=== PATIENT | male | born 2000 | race African-American/Black ===

== ENCOUNTER → 2022-04-23 08:29 | Outpatient (BNVA) | payer OTHER, SELFPAY | PROVIDERS: Visit Provider Internal Medicine | DX: M75.41 Impingement syndrome of right shoulder (principal) | CPT/HCPCS: 73030; 99203 ==

== ENCOUNTER → 2022-04-26 08:38 | Outpatient (BNVA) | payer OTHER, SELFPAY | PROVIDERS: Visit Provider Physician Assistant Medical | DX: M75.41 Impingement syndrome of right shoulder (principal) | CPT/HCPCS: 99213 ==

== ENCOUNTER → 2022-05-03 09:36 | Outpatient (BNVA) | payer OTHER, SELFPAY | PROVIDERS: Visit Provider Physician Assistant Medical | DX: M75.41 Impingement syndrome of right shoulder (principal) | CPT/HCPCS: 99213 ==

== ENCOUNTER → 2022-05-24 08:01 | Outpatient (BNVA) | payer OTHER, SELFPAY | PROVIDERS: Visit Provider Physician Assistant Medical | DX: M75.41 Impingement syndrome of right shoulder (principal) | CPT/HCPCS: 99213 ==

== ENCOUNTER → 2022-06-15 15:30 | Outpatient (BNVA) | payer OTHER, SELFPAY | PROVIDERS: Visit Provider Internal Medicine | DX: M25.811 Other specified joint disorders, right shoulder (principal) | CPT/HCPCS: 99213 ==

== ENCOUNTER 2022-06-17 17:00 | Outpatient (RCR) | payer OTHER, SELFPAY ==
--- NOTE | 2022-05-10 10:12 | MHC.PT.EP ---
[facility] [place] Office [place] Office [place] Office [address] Wil Esposiot [address] [phone] F: [phone] F: [phone] F: [phone] F: [phone] Physical Therapy Plan of Care Date of Evaluation: Date of Surgery: Diagnosis: Rt ROTATOR CUFF IMPINGEMENT Assessment: 22 MALE REF TO PT W DX OF Rt SH IMPINGEMENT, SUSTAINED ON 04/21/22 WHILE Pt WAS ACTIVE IN THE [employer]. 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 Pt IS Rt HAND DOMINANT. HE HAS (+) IMPINGEMENT SIGNS, DECR STRENGTH IN POST RC/ SCAP STAB, Rt SH END ROM SORENESS AND POST ACTIVITY PAIN, (+) PECT/ ANT CHAIN TISSUE RESTRICTION, (+) PELVIC ASYMM AND C-CURVE LEFT TENDENCIES. FUNCTIONALLY, Pt IS SYMPTOMATIC AFTER Rt UE USAGE, REACHING, LIFTING, IR POSTERIORLY. Pt IS A GOOD CANDIDATE TO ADDRESS THE ABOVE FINDINGS-> PAIN/SX MGMT STRATEGIES, DEV A PROGR THER EXER FOR Rt SH COMPLEX AND LUMBOPELVIC STAB, AND GUIDE Pt TO MEET ULTIMATE GOAL OF RE-ENTRY IN THE [employer]. Frequency and Duration: The patient will be seen 2 x WK x 4 WKS Short Term Goals: *Pt INDEP POSTURAL CORRECTION AND WFL BODY MECH AWARENESS, WFL PELVIC SYMM/ REDUCE Rt LATERAL CHAIN TISSUE TENSION *Pt'S Rt SH PAIN DCER TO 2-3/10 @ MAX *Pt REGAIN WFL AROM Rt SH W/O IMPINGEMENT SIGN * INITIATE HEP FOR POST RC/ SCAP STRENGTH AND STAB WELL ANT CHAIN MOBILITY Penitentiary Goals: *Pt INDEP W PROGR HEP ADDRESSING SOFT TISSUE TENSION WELL POST RC/ SCAP STRENGTH IN 4 WKS *Pt RESUME REG ADLs EVIDENT W Pt'S SPADI SCORE IMPROVEMENT BY 5-8 POINTS (AT EVAL 27/130) IN 4 WKS *Pt INDEP SELF-SX MGMT Treatment Plan: Modalities to reduce pain, spasms and effusion. Manual therapy to restore motion and function. Therapeutic exercise to improve strength and flexibility. Neuromuscular re-education for posture and balance. Therapeutic activities to return to functional activities of daily living. Electronically signed by: Kimberly Mcpherson PT Please sign and return to therapist. Thank you for your referral.
--- NOTE | 2022-06-17 17:54 | MHC.PT.DC ---
[facility] [place] Office [place] Office [place] Office [address] Wil Esposito [address] [phone] F: [phone] F: [phone] F: [phone] F: [phone] Physical Therapy Discharge Report Diagnosis: Rt ROTATOR CUFF IMPINGEMENT Date of Surgery: Date of Evaluation: 05/10/22 Date of Discharge: 06/17/22 Treatments to Date: 8 Cancellations to Date: 2 No Shows to Date: 1 Discharge Status: Independent with HEP Recommend MD Follow-up Discharge Summary: 06/17/2022: Pt has made some progress since beginning skilled PT although he is still having discomfort at times which is preventing him from returning to his full PLOF. He feels his pain overall is better but still there. He has recently been referred to ortho although does not have the appointment scheduled yet. At this point he has appeared to reach a plateau with skilled PT and therefore it is not appropriate to continue at this time. Max benefits of skilled PT have been provided to this point. Discussed recent plateau and plan for d/c with the pt today and he is in agreement. Recommend he attends his appointment with ortho for further management of pain/sx. 06/14/2022: Max cues for speed of movement with exercises as he has increased pain when he moves too fast through strengthening likely due to momentum taking over rather than focusing on controlling and isolating his muscles. Still with extreme difficulty executing this as he resorts back to fast movement frequently. Pain with planks so held on this today. Pt pain appears to be increasing without any new mechanism over these last few visits. He is seeing work connection this week and advised discussing this recent worsening of pain. Also discussed plan to d/c next session due to not making new progress recently and pt with good agreement. 06/10/2022: Still with discomfort that appeared at the start of last session. Still needing cues during session for form with fair carry over. Initially discomfort with serratus press but after correcting form no pain. Advised continuing to work on HEP at home and being mindful of form. 06/07/2022: Pt with some increase in discomfort today with Y exercise at the end and also with serratus punch. Still requiring cues for slow speed of movement and proper form throughout to maximize benefits of each exercise. Fair improvement after these cues. Modified session to accommodate with less UE weight bearing. Instead added AAROM for flexion and a cane press both of which were tolerated. Advised continuation of HEP at home as tolerated and without pushing into pain. 06/03/2022: Pt requesting to leave after 40 minutes today stating he felt off . Pt accommodated and shorter session today. Otherwise tolerated exercises well without pain. Progressed some scapular stability exercises without adverse reaction. Cues for form intermittently with some improvement. Advised continuing with HEP at home. 05/24/2022: Initiated modified weight bearing positions on the wall. No pain with these but muscle fatigue notable affecting form at times. Cues to correct this. Initiated planks for other closed change strengthening and pt with quite a bit of difficulty with form and visibly challenge with strength impairments. Advised adding modified closed change exercises to home as tolerated and good verbal understanding. 05/17/2022: Progressed shoulder and scapular stability program today. Pt with no pain but does fatigue requiring rest breaks throughout. Cues for form intermittently especially for proper scap recruitment. Updated HEP and printout provided. Advised pt to continue with HEP at home. 22 MALE REF TO PT W DX OF Rt SH IMPINGEMENT, SUSTAINED ON 04/21/22 WHILE Pt WAS ACTIVE IN THE [employer]. 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 Pt IS Rt HAND DOMINANT. HE HAS (+) IMPINGEMENT SIGNS, DECR STRENGTH IN POST RC/ SCAP STAB, Rt SH END ROM SORENESS AND POST ACTIVITY PAIN, (+) PECT/ ANT CHAIN TISSUE RESTRICTION, (+) PELVIC ASYMM AND C-CURVE LEFT TENDENCIES. FUNCTIONALLY, Pt IS SYMPTOMATIC AFTER Rt UE USAGE, REACHING, LIFTING, IR POSTERIORLY. Pt IS A GOOD CANDIDATE TO ADDRESS THE ABOVE FINDINGS-> PAIN/SX MGMT STRATEGIES, DEV A PROGR THER EXER FOR Rt SH COMPLEX AND LUMBOPELVIC STAB, AND GUIDE Pt TO MEET ULTIMATE GOAL OF RE-ENTRY IN THE [employer]. Electronically signed by: Maryellen Carlson, PT, DPT, ATC Please sign and return to therapist. Thank you for your referral.
== END 2022-06-17 17:54 | disposition home or self-care (01) ==
LOC: HO.PTCHIC 17:00
PROVIDERS: Visit Provider Physician Assistant Medical
DX: M25.811 Other specified joint disorders, right shoulder (principal)
CPT/HCPCS: 97110; 97140; 97161; 97530

== ENCOUNTER 2022-09-05 23:20 | Emergency (ER) | payer BC, SELFPAY ==
[2022-09-05 23:46] VITALS: BP 138/91; PULSE 105; RESP 18; TEMP 36.9; O2SAT 97; BMI 25.2
--- NOTE | 2022-09-05 23:49 | ECG_ITS ---
Test Reason : chest pain Blood Pressure : / mmHG Vent. Rate : 097 BPM Atrial Rate : 097 BPM P-R Int : 160 ms QRS Dur : 080 ms QT Int : 342 ms P-R-T Axes : 075 071 069 degrees QTc Int : 434 ms Normal sinus rhythm with sinus arrhythmia Normal ECG No previous ECGs available Referred By: Generic ED Physician Electronically Signed By:EVERETT CARR
--- NOTE | 2022-09-06 00:11 | ED_ITS ---
HPI - Chest Pain General Chief Complaint: Chest Pain Stated Complaint: pain from r shoulder down, feels numb, chest pain Time Seen by Provider: 09/06/22 00:11 Source: patient Mode of arrival: ambulatory Limitations: no limitations History of Present Illness HPI narrative: Previous steroid her cuff impingement syndrome right-sided otherwise healthy very active comes here for sudden onset of right arm pain feel like ache started with numbness when patient came in her mid chest in also no diaphoresis no nausea no vomiting no shortness no pain with with right arm movement Related Data Allergies Allergy/AdvReac Type Severity Reaction Status Date / Time No Known Allergies Allergy Verified 09/05/22 23:43 Review of Systems Review of Systems: Yes all other systems are reviewed and are negative [facility] Social History Social History Alcohol intake: current Alcohol intake frequency: a few times a week Alcohol type: other Smoked in Last 30 Days: No Use of substances other than those prescribed or required for medical reasons: No Advance Directives: No Advance Directives Information Provided: No Physical Exam Vital Signs: Vital Signs: Last Vital Signs Temp 98.6 F 09/06/22 00:33 Pulse 85 09/06/22 00:33 Resp 18 09/06/22 00:33 BP 130/85 09/06/22 00:33 Pulse Ox 97 09/06/22 00:33 O2 Del Method 09/06/22 00:33 BMI result Body Mass Index 25.2 Appearance: Alert. Oriented X3. No acute distress. No pallor or icterus ENT: Pharynx normal. Oral Mucosa moist Neck: Normal inspection. Neck supple. CVS: Normal heart rate and rhythm. Pulses normal. Respiratory: No respiratory distress. Equal air entry bilateral, no wheezing/rales/rhonchi Abdomen: Soft and nontender. Bowel sounds are present, no mass palpable, no CVA tenderness Skin: Skin warm and dry. Normal skin color. Normal skin turgor. Extremities: No lower extremity edema. No calf tenderness Neuro: Oriented X 3. No motor deficit. Medical Decision Making Medical Decision Making MDM Narrative: Patient clinically musculoskeletal arm pain labs are negative discharge patient home heart score of 0 Lab Attestation: I reviewed the patient's lab results. Independent interpretation of EKG, rhythm strip, radiology study: Independent interp EKG,rhythm strip, radiology study I performed an independent interpre tation of the: EKG My interpretation is normal sinus rhythm heart rate 97 beats per minute normal interval normal axis no acute ST-T changes no acute ischemia impression normal EKG Discharge Plan Discharge Clinical Impression: Musculoskeletal chest pain Patient Disposition: Home, Self-Care Instructions: Noncardiac Chest Pain (ED) Additional Instructions: Tylenol/Motrin for pain as needed Follow with PCP if any concerns
[2022-09-06 00:24] LABS: Basophils Percent Auto 0.5 % (0-2); Eosinophils Absolute Auto 0.1 X10*3/uL (0.0-0.4); Eosinophils Percent Auto 0.8 % (0-4); Hematocrit 44.4 % (42.0-52.0); Hemoglobin 15.1 g/dl (14.0-18.0); Imm Gran Abs Auto 0.02 X10*3/uL (0.00-0.03); Imm Gran Pct Auto 0.3 % (0.0-0.4); Lymphocytes Absolute Auto 1.7 X10*3/uL (1.2-4.9); Lymphocytes Percent Auto 23.3 % (20-40); Mean Corpuscular Hemoglobin 29.2 pg (27.0-33.0); Mean Corpuscular Volume 85.9 fL (80.0-98.0); Mean Platelet Volume 8.6 fL (9.4-12.4); Monocytes Absolute Auto 0.7 X10*3/uL (0.1-1.2); Monocytes Percent Auto 9.1 % (2-11); Neutrophils Absolute Auto 4.9 x10*3/uL (2.0-8.3); Platelet Count 293 X10*3/uL (160-400); Red Blood Count 5.17 X10*6/uL (4.60-5.80); Red Cell Distribution Width 11.9 % (11.0-16.0); White Blood Count 7.4 X10*3/uL (4.8-10.8)
[2022-09-06 00:28] LABS: MANUAL DIFF FLAG NO
[2022-09-06 00:32] VITALS: PULSE 89
[2022-09-06 00:33] VITALS: BP 130/85; PULSE 85; RESP 18; TEMP 37; O2SAT 97
[2022-09-06 00:49] LABS: COVID-19 Test Negative (Negative); IDNOW Serial# BCCEAD1C
[2022-09-06 00:55] LABS: Troponin-I High Sensitivity < 3.5 ng/L (<3.5-35.0)
[2022-09-06 01:00] LABS: Anion Gap 15 (12-20); Blood Urea Nitrogen 12 mg/dL (9-16); Calcium 9.9 mg/dL (8.4-10.2); Carbon Dioxide 25 mmol/L (22-29); Chloride 104 mmol/L (96-108); Creatinine Clr Calc Pharmacy 102.8; Estimated Glomerular Filt Rate > 60; Glucose Random 96 mg/dL (60-115); Potassium 4.1 mmol/L (3.3-5.1); Sodium 140 mmol/L (135-145)
== END 2022-09-06 01:43 | disposition home or self-care (01) ==
PROVIDERS: Emergency Provider Internal Medicine
DX: R07.89 Other chest pain (principal); M75.41 Impingement syndrome of right shoulder
CPT/HCPCS: 36415; 80048; 84484; 85025; 87635; 93005; 99283; 99285